=== PATIENT | male | born 1990 | race Caucasian/White ===

== ENCOUNTER 2016-09-06 09:48 | Emergency (ER) | payer OTHER ==
[~2016-09-06] VITALS: Ht 190.5 cm; Wt 85.6 kg
[2016-09-06 09:51] VITALS: TEMP 36.5; Ht 190.5 cm; Wt 85.6 kg
[2016-09-06] MEDS ORDERED: LORAZEPAM 0.5 MG TAB SL STA (10:11)
--- NOTE | 2016-09-06 10:48 | EMERGENCY ROOM VISIT NOTE ---
History Report prepared by Martha: Vinnie Murdock Under the Supervision of: Dr. Henok Bates D.O. First contact with patient: 10:02 Chief Complaint: MENTAL HEALTH EVALUATION Stated Complaint: RACING THOUGHT, MARIJUANA, SCATTERED, RESTLESS History of Present Illness The patient is a 25 year old male who presents to the Emergency Room with complaints of racing thoughts for the past 4 to 5 days. The patient additionally states that he has increased creativity, increased marijuana use, and inability to sleep for more than 4-5 hours. The patient states that he was in therapy this morning and yesterday with his psychiatrist and psychologist, and they told him to come to the ED for further evaluation. The patient states that he takes Depakote, Seroquel, nortriptyline, and levothyroxine daily, and his medications have not changed in the last 6 months. He states that he has taken these medications since he was 16 years old. He states that this was started after a rough day of travelling back from [place]. He states that he has been admitted for mental health care in the past, though not locally. The patient states that he is schizoaffective, and he has IBS. The patient states that he does not smoke cigarettes or use other drugs, though he admits to drinking alcohol and smoking marijuana. The patient states that he does not have a plan to hurt himself, and he does not have access to any guns. The patient states that he has been eating and drinking well, and he has some abdominal pain. He denies any recent weight changes, and he states that he took his mediations this morning. Source of History: patient Onset: 4-5 days ago Position: other (global) Quality: other (racing thoughts) Timing: constant Associated Symptoms: + abdominal pain Note: Associated symptoms: increased creativity, increased marijuana use, and inability to sleep. Review of Systems See HPI for pertinent positives & negatives. A total of 10 systems reviewed and were otherwise negative. Past Medical & Surgical Medical Problems: (1) IBS (irritable bowel syndrome) (2) Schizoaffective disorder Social History Smoking Status: Never Smoker Marital Status: single Housing Status: lives with family Occupation Status: unemployed Current/Historical Medications Scheduled Divalproex Sodium (Depakote), 1,000 MG PO HS Levothyroxine Sodium (Levothyroxine Sodium), 1 TAB PO DAILY Nortriptyline (Pamelor), 25 MG PO HS Quetiapine Fumarate Xr (Seroquel Xr Tab), 400 MG PO DAILY Allergies Coded Allergies: Amoxicillin (Unverified Allergy, Unknown, rash, 09/06/16) Cephalexin (Unverified Allergy, Unknown, RASH, 09/06/16) Physical Exam Vital Signs Date Time Temp Pulse Resp B/P (MAP) Pulse Ox O2 Delivery O2 Flow Rate FiO2 09/06/16 14:06 86 18 146/81 98 09/06/16 09:51 36.5 102 140/90 96 Room Air Physical Exam GENERAL: Patient is anxious but comfortable appearing. Does not appear guarded. EYES: The conjunctivae are clear. The pupils are round and reactive. EARS, NOSE, MOUTH AND THROAT: The nose is without any evidence of any deformity. Mucous membranes are moist tongue is midline NECK: The neck is nontender and supple. RESPIRATORY: Normal respiratory effort is noted there is no evidence of wheezing rhonchi or rales CARDIOVASCULAR: Regular rate and rhythm noted there no murmurs rubs or gallops normal S1 normal S2 GASTROINTESTINAL: The abdomen is soft. Bowel sounds are present in all quadrants. Abdomen is nontender MUSCULOSKELETAL/EXTREMITIES: There is no evidence of gross deformity full range of motion is noted in the hips and shoulders SKIN: There is no obvious evidence of any rash. There are no petechiae, pallor or cyanosis noted. NEUROLOGIC: Patient is awake alert and oriented x3 strength is symmetric patellar reflexes are 2+ bilaterally PSYCH: Patient makes good eye contact for most of the evaluation. Denies any suicidal or homicidal ideation. Currently mildly tangential thought process noted. Medical Decision & Procedures Laboratory Results 09/06/16 10:46 Red Blood Count 4.85, Mean Corpuscular Volume 88.2, Mean Corpuscular Hemoglobin 30.7, Mean Corpuscular Hemoglobin Concent 34.8, Mean Platelet Volume 9.9, Neutrophils (%) (Auto) 53.2, Lymphocytes (%) (Auto) 32.0, Monocytes (%) (Auto) 13.7, Eosinophils (%) (Auto) 0.5, Basophils (%) (Auto) 0.4, Neutrophils # (Auto ) 3.04, Lymphocytes # (Auto) 1.83, Monocytes # (Auto) 0.78, Eosinophils # (Auto ) 0.03, Basophils # (Auto) 0.02 09/06/16 10:46 Test 09/06/16 10:35 09/06/16 10:46 Urine Color YELLOW Urine Appearance CLEAR (CLEAR) Urine pH 8.5 (4.5-7.5) Urine Specific [place] 1.009 (1.000-1.030) Urine Protein NEG (NEG) Urine Glucose (UA) NEG (NEG) Urine Ketones NEG (NEG) Urine Occult Blood NEG (NEG) Urine Nitrite NEG (NEG) Urine Bilirubin NEG (NEG) Urine Urobilinogen NEG (NEG) Urine Leukocyte Esterase NEG (NEG) Urine Opiates Screen NEG (NEG) Urine Methadone, Qualitative NEG (NEG) Urine Barbiturates NEG (NEG) Urine Phencyclidine (PCP) Level NEG (NEG) Ur Amphetamine/Methamphetamine NEG (NEG) MDMA (Ecstasy) Screen NEG (NEG) Urine Benzodiazepines Screen NEG (NEG) Urine Cocaine Metabolite NEG (NEG) Urine Marijuana (THC) POS (NEG) White Blood Count 5.71 K/uL (4.8-10.8) Red Blood Count 4.85 M/uL (4.7-6.1) Hemoglobin 14.9 g/dL (14.0-18.0) Hematocrit 42.8 % (42-52) Mean Corpuscular Volume 88.2 fL (80-100) Mean Corpuscular Hemoglobin 30.7 pg (25-34) Mean Corpuscular Hemoglobin Concent 34.8 g/dl (32-36) Platelet Count 224 K/uL (130-400) Mean Platelet Volume 9.9 fL (7.4-10.4) Neutrophils (%) (Auto) 53.2 % Lymphocytes (%) (Auto) 32.0 % Monocytes (%) (Auto) 13.7 % Eosinophils (%) (Auto) 0.5 % Basophils (%) (Auto) 0.4 % Neutrophils # (Auto) 3.04 K/uL (1.4-6.5) Lymphocytes # (Auto) 1.83 K/uL (1.2-3.4) Monocytes # (Auto) 0.78 K/uL (0.11-0.59) Eosinophils # (Auto) 0.03 K/uL (0-0.5) Basophils # (Auto) 0.02 K/uL (0-0.2) RDW Standard Deviation 41.6 fL (36.4-46.3) RDW Coefficient of Variation 12.9 % (11.5-14.5) Immature Granulocyte % (Auto) 0.2 % Immature Granulocyte # (Auto) 0.01 K/uL (0.00-0.02) Anion Gap 9.0 mmol/L (3-11) Est Creatinine Clear Calc Drug Dose 171.5 ml/min Estimated GFR () 144.4 Estimated GFR (Non- 124.6 BUN/Creatinine Ratio 12.1 (10-20) Calcium Level 9.4 mg/dl (8.5-10.1) Total Bilirubin 0.3 mg/dl (0.2-1) Direct Bilirubin 0.1 mg/dl (0-0.2) Aspartate Amino Transf (AST/SGOT) 10 U/L (15-37) Alanine Aminotransferase (ALT/SGPT) 22 U/L (12-78) Alkaline Phosphatase 80 U/L (45-117) Total Protein 7.5 gm/dl (6.4-8.2) Albumin 4.1 gm/dl (3.4-5.0) Thyroid Stimulating Hormone (TSH) 1.340 uIu/ml (0.300-4.500) Valproic Acid (Depakene) Level 131 mcg/ml (50-100) Ethyl Alcohol mg/dL < 3.0 mg/dl (0-3) Laboratory results per my review. Medications Administered Medications (Trade) Dose Ordered Sig/Melody Route Start Time Stop Time Status Last Admin Dose Admin Lorazepam (Ativan Tab) 0.5 mg NOW STAT SL 09/06/16 10:11 09/06/16 10:12 DC 09/06/16 10:41 0.5 MG ED Course 1002: The patient was evaluated in room A7. A complete history and physical examination were performed. 1011: Ativan Tab 0.5mg SL 1407: Upon reevaluation, the patient is feeling well. I discussed the results and treatment plan with him and his father. They verbalized agreement of the treatment plan. He was discharged home. Medical Decision Differential diagnosis: Etiologies such as mood disorder, infection, hypoglycemia, electrolyte abnormalities, cardiac sources, intracerebral event, toxicologic, neurologic, as well as others were entertained. Patient was found to have a slightly elevated blood pressure due to circumstances. I do not believe that the patient requires hypertension monitoring. Medication Reconciliation: I attest that I have personally reviewed the patient' s current medications list. The patient is a 25-year-old male who presented to the emergency department for a mental health evaluation. The patient presented with his father. The patient states that he's noticed increased lisbeth recently. He is having trouble sleeping and has insomnia. He states that he has been compliant with his medications. He went to see his primary psychiatrist today and was sent to the ER for an evaluation. The patient was treated with Ativan in the emergency department. He was medically cleared in the emergency department. He did have an elevated valproic acid level but this was a random draw. The patient was evaluated by the emergency department mental health case sealer as well as his case was discussed with our personal psychiatrist. His case was also discussed with his primary psychiatrist. The patient does not meet criteria for inpatient treatment at this time and has agreed to follow-up with his primary psychiatrist tomorrow. He was encouraged to continue all medications as prescribed and call crisis or return to emergency department immediately symptoms change worsen or the need arises.- Impression Primary Impression: Bipolar disorder Scribe Attestation The scribe's documentation has been prepared under my direction and personally reviewed by me in its entirety. I confirm that the note above accurately reflects all work, treatment, procedures, and medical decision making performed by me. Departure Information Dispostion Home / Self-Care Referrals [facility] (PCP) Forms HOME CARE DOCUMENTATION FORM, IMPORTANT VISIT INFORMATION Patient Instructions Bipolar Disorder, My [facility] Additional Instructions Continue all medications as prescribed. Follow-up with your psychiatrist as scheduled. Return to the emergency department immediately or call crisis if symptoms change worsen or need arises. Problem Qualifiers Primary Impression: Bipolar disorder Active/Remission status: remission status unspecified Qualified Codes: F31.9 - Bipolar disorder, unspecified
[2016-09-06] MEDS ORDERED: DIVA500T59 PO (10:49)
[2016-09-06] MEDS ORDERED: QUET400T PO (10:49)
[2016-09-06] MEDS ORDERED: LEVO175T3 PO (10:49)
[2016-09-06] MEDS ORDERED: NORT25CA PO (10:49)
[2016-09-06 10:51] LABS: URINE APPEARANCE CLEAR (CLEAR); URINE BILIRUBIN NEG (NEG); URINE COLOR YELLOW; URINE NITRITE NEG (NEG); URINE PH 8.5 (4.5-7.5); URINE SPECIFIC GRAVITY 1.009 (1.000-1.030); UROBILINOGEN NEG (NEG)
[2016-09-06 10:55] LABS: MANUAL MICROSCOPIC REQUIRED? NO; REVIEW REQ? NO
[2016-09-06 11:01] LABS: BASO % 0.4 %; BASO ABS # 0.02 K/uL (0-0.2); COMPLETE YES; EOS % 0.5 %; HEMATOCRIT 42.8 % (42-52); IG% 0.2 %; LYMPH ABS # 1.83 K/uL (1.2-3.4); MEAN CELL VOLUME 88.2 fL (80-100); MEAN CORPUSCULAR HEMOGLOBIN 30.7 pg (25-34); MEAN CORPUSCULAR HGB CONC 34.8 g/dl (32-36); MEAN PLATELET VOLUME 9.9 fL (7.4-10.4); MONO % 13.7 %; NEUT % 53.2 %; PLATELET COUNT 224 K/uL (130-400); RED BLOOD COUNT 4.85 M/uL (4.7-6.1); WHITE BLOOD COUNT 5.71 K/uL (4.8-10.8)
[2016-09-06 11:18] LABS: BENZODIAZEPINE, URINE NEG (NEG); COCAINE,URINE NEG (NEG); PHENCYCLIDINE, URINE NEG (NEG)
[2016-09-06 11:19] LABS: BUN/CREATININE RATIO 12.1 (10-20); CALCIUM 9.4 mg/dl (8.5-10.1); CREATININE 0.78 mg/dl (0.60-1.40); POTASSIUM 3.8 mmol/L (3.5-5.1)
[2016-09-06 11:29] LABS: THYROID STIMULATING HORMONE 1.34 uIu/ml (0.300-4.500)
[2016-09-06 14:06] VITALS: BP 146/81; PULSE 86; O2SAT 98
[2016-09-13 15:29] LABS: SYNTHETIC CANNABINOIDS QL URIN NEGATIVE (Negative)
== END 2016-09-06 14:07 | disposition home or self-care (01) ==
LOC: C.EDB 09:51 → C.EDA 14:07
DX: F31.9 Bipolar disorder, unspecified (principal); K58.9 Irritable bowel syndrome, unspecified; F25.9 Schizoaffective disorder, unspecified; Z79.899 Other long term (current) drug therapy